=== PATIENT | male | born 1940 | race Caucasian/White ===

== ENCOUNTER 2016-05-26 09:31 | Emergency (ER) | payer MEDICARE, OTHER | END 2016-05-27 09:50 | disposition home or self-care (01) | LOC: ER 09:31 | DX: R23.3 Spontaneous ecchymoses (principal); I10 Essential (primary) hypertension; F17.210 Nicotine dependence, cigarettes, uncomplicated; Z79.899 Other long term (current) drug therapy | CPT/HCPCS: 99070; 99282 ==

== ENCOUNTER 2016-06-29 16:38 | Emergency (ER) | payer MEDICARE, OTHER ==
[2016-06-29 17:19] LABS: BASO % 0.9 % (0.2-1.2); EOS % 0.7 % (0.8-7.0); GRAN # 2.8 10_X3_uL (1.8-5.4); GRAN % 60.8 % (34.0-67.9); HEMATOCRIT 39.5 % (40-51); HEMOGLOBIN 13.4 g/dL (13.7-17.5); LYMPH # 1.3 10_X3_uL (1.3-3.6); LYMPH % 28.9 % (21.8-53.1); MEAN CORPUSCULAR HEMOGLOBIN 31.5 pg (27.0-33.0); MEAN CORPUSCULAR HGB CONC 33.9 g/dL (32.0-36.0); MEAN CORPUSCULAR VOLUME 92.9 fL (79-92); MEAN PLATELET VOLUME 9.9 fl (7.5-11.5); MONO # 0.4 10_X3_uL (0.3-0.8); MONO % 8.7 % (5.3-12.2); PLATELET COUNT 138 x10_3/uL (163-337); RED BLOOD COUNT 4.25 x10_6/uL (4.6-6.1); RED CELL DISTRIBUTION WIDTH 15.1 % (11.6-14.4); WHITE BLOOD COUNT 4.6 x10_3/uL (4.2-9.1)
[2016-06-29 17:33] LABS: BLOOD UREA NITROGEN 21 mg/dL (7-18); CALCIUM 9.2 mg/dL (8.7-10.7); CARBON DIOXIDE 25 mmol/L (21-32); CREATINE KINASE 92 U/L (35-232); CREATININE 0.9 mg/dL (0.6-1.3); GLUCOSE,RANDOM 84 mg/dL (70-99); POTASSIUM 4.3 mmol/L (3.5-5.1); SODIUM 139 mmol/L (136-145)
== END 2016-06-29 23:23 | disposition home or self-care (01) ==
LOC: ER 16:38
PROVIDERS: Emergency Medicine
DX: C78.00 Secondary malignant neoplasm of unspecified lung (principal); J90 Pleural effusion, not elsewhere classified; Z85.038 Personal history of other malignant neoplasm of large intestine; J44.9 Chronic obstructive pulmonary disease, unspecified; Z90.49 Acquired absence of other specified parts of digestive tract; Z95.1 Presence of aortocoronary bypass graft; F17.210 Nicotine dependence, cigarettes, uncomplicated; R53.1 Weakness; I44.7 Left bundle-branch block, unspecified; Z79.899 Other long term (current) drug therapy
CPT/HCPCS: 36415; 71020; 71260; 80048; 82550; 82553; 85025; 87040; 93005; 99070; 99284; 99285-25; J7040; Q9967